=== PATIENT | male | born 1955 | race Caucasian/White ===

== ENCOUNTER 2018-11-23 17:02 | Emergency (ER) | payer OTHER, MEDICARE, SELFPAY ==
[2018-11-23 17:10] VITALS: BP 148/81; PULSE 63; RESP 15; TEMP 36.1; O2SAT 100; BMI 25.8
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
[2018-11-23] MEDS: KETOROLAC 60 MG/2 ML VIAL 30 MG IM (18:29)
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
[2018-11-23 19:11] VITALS: BP 137/94; RESP 18
== END 2018-11-23 19:13 | disposition home or self-care (01) ==
PROVIDERS: Emergency Provider Emergency Medicine
DX: S16.1XXA Strain of muscle, fascia and tendon at neck level, initial encounter (principal); S09.90XA Unspecified injury of head, initial encounter; M54.5 Low back pain; V49.49XA Driver injured in collision with other motor vehicles in traffic accident, initial encounter
CPT/HCPCS: 70450; 71045; 72125; 72131; 72170; 96372; 99282; 99284; J1885